=== PATIENT | male | born 1990 ===

== ENCOUNTER 2020-08-03 17:13 | Emergency (ER) | payer SELFPAY ==
[~2020-08-03] VITALS: Ht 185.4 cm; Wt 113.4 kg
[2020-08-03] MEDS ORDERED: ACETAMINOPHEN 500 MG TABLET ONE (18:29)
[2020-08-03] MEDS ORDERED: ACETAMINOPHEN 500 MG TABLET PO ONE (18:30)
[2020-08-03] MEDS ORDERED: SODIUM CHLORIDE FLUSH 10ML SYR IVF ONE (18:30)
[2020-08-03] MEDS ORDERED: KETOROLAC 30 MG/1 ML IVPush ONE (18:30)
[2020-08-03] MEDS ORDERED: SODIUM CHLORIDE 0.9% 1,000ML IVBOLUS ONE ×2 (18:30→20:00)
[2020-08-03 18:34] LABS: BASOPHILS % (AUTO) 1 % (0-1); EOSINOPHILS % (AUTO) 0 % (1-7); LYMPHOCYTES % (AUTO) 20 % (22-44); MEAN CORPUSCULAR HGB CONC 34.5 g/dL (33.2-36.2); MEAN PLATELET VOLUME 7.9 fL (7.4-10.4); MONOCYTES % (AUTO) 6 % (2-9); NEUTROPHILS % (AUTO) 73 % (42-75); PLATELET COUNT 296 x10^3/uL (130-400); RED BLOOD COUNT 4.99 x10^6/uL (4.38-5.82); RED CELL DISTRIBUTION WIDTH 12.6 % (9.4-14.8)
[2020-08-03 18:39] LABS: ANION GAP 5 mmol/L (5-15); CALCIUM 8.7 mg/dL (8.5-10.1); CHLORIDE 104 mmol/L (98-107); CREATININE 1.14 mg/dL (0.7-1.3)
--- NOTE | 2020-08-03 18:50 | NUR ---
THIS IS A 30 YR OLD MALE HERE FOR FLU LIKE SYMPTOMS X 1 WEEK AND SOB X 1 DAY. PT PLACED ON CARDIAC, NIBP, AND O2 MONITORING. IV ACCESS OBTAINED, LABS DRAWN FROM START, AND IV FLUIDS PER NOV. PT MEDICATED PER ORDER. CALL LIGHT IN REACH. PT ENCOURAGED TO CALL.
[2020-08-03 18:52] LABS: MD NO
[2020-08-03] MEDS ORDERED: KETOROLAC 30 MG/1 ML ONE (18:54)
--- NOTE | 2020-08-03 19:28 | NUR ---
PT AMBULATED PER DR YU. PT WAS ABLE TO AMBULATE THE LENGTH OF THE ER TWICE WITHOUT ANY O2 DESATURATION. DR YU MADE AWARE.
[2020-08-03 19:40] LABS: D-DIMER (DIC) 0.57 ug/mlFEU (0.00-0.52); PROTIME 11.8 Seconds (9.6-11.5)
[2020-08-03 19:42] LABS: C-REACTIVE PROTEIN, QUANT 3.73 mg/dL (0.02-0.49)
[2020-08-03 19:52] VITALS: BP 125/75
== END 2020-08-03 20:34 | disposition home or self-care (01) ==
LOC: ED 17:23
DX: U07.1 COVID-19 (principal); J06.9 Acute upper respiratory infection, unspecified
CPT/HCPCS: 36415; 71045; 80048; 82728; 83605; 83615; 84145; 85025; 85049; 85379; 85384; 85610; 85730; 86140; 87040; 87186; 87635; 96361; 96374; 99284; J1885; J7030

== ENCOUNTER 2020-08-05 00:57 | Emergency (ER) | payer SELFPAY ==
[~2020-08-05] VITALS: Ht 185.4 cm; Wt 118.0 kg
--- NOTE | 2020-08-05 02:16 | NUR ---
pt to room from lobby
--- NOTE | 2020-08-05 02:51 | NUR ---
cxr at bs.
[2020-08-05 03:06] LABS: ALBUMIN 3.2 g/dL (3.4-5.0); ANION GAP 6 mmol/L (5-15); CALCIUM 8.4 mg/dL (8.5-10.1); CHLORIDE 104 mmol/L (98-107); CREATININE 1.02 mg/dL (0.7-1.3)
[2020-08-05 03:09] LABS: BASOPHILS % (AUTO) 0 % (0-1); EOSINOPHILS % (AUTO) 0 % (1-7); LYMPHOCYTES % (AUTO) 12 % (22-44); MEAN CORPUSCULAR HEMOGLOBIN 29.3 pg (27.5-34.5); MEAN CORPUSCULAR HGB CONC 34.1 g/dL (33.2-36.2); MEAN PLATELET VOLUME 7.6 fL (7.4-10.4); MONOCYTES % (AUTO) 4 % (2-9); NEUTROPHILS % (AUTO) 83 % (42-75); PLATELET COUNT 310 x10^3/uL (130-400); RED CELL DISTRIBUTION WIDTH 12.5 % (9.4-14.8)
[2020-08-05 03:17] LABS: MD NO
--- NOTE | 2020-08-05 04:10 | NUR ---
vss. ambulatory. verbalized understanding of discharge instructions.
== END 2020-08-05 04:11 | disposition home or self-care (01) ==
LOC: ED 01:00
DX: J18.9 Pneumonia, unspecified organism (principal); R50.9 Fever, unspecified; R06.02 Shortness of breath; R07.89 Other chest pain; R78.81 Bacteremia
CPT/HCPCS: 36415; 71045; 80048; 82040; 84145; 85025; 99284

== ENCOUNTER 2020-08-06 09:45 | Emergency (ER) | payer SELFPAY ==
[~2020-08-06] VITALS: Ht 185.4 cm; Wt 116.6 kg
--- NOTE | 2020-08-06 09:53 | NUR ---
NO ANSWER X2
--- NOTE | 2020-08-06 10:16 | NUR ---
ER PROVIDER AT BEDSIDE FOR EVALUATION.
--- NOTE | 2020-08-06 10:19 | NUR ---
PATIENT WALKED BACK FROM TRIAGE WITH CHIEF C/O LOW OXYGEN LEVELS. PATIENT STATES HE IS COVID +, AND HAS BEEN MONITORING OXYGEN SATURATION AT HOME. TODAY O2 SATS WERE CONSISTENTLY BELOW 90% PER PATIENT. PATIENT DENIES CHEST PAIN. O2 SATURATION AT THIS TIME 90% RA. NO SIGNS OF ACUTE DISTRESS, CONNECTED TO VITALS MACHINE, CALL LIGHT WITHIN REACH.
[2020-08-06] MEDS ORDERED: SODIUM CHLORIDE FLUSH 10ML SYR IVF ONE (10:30)
--- NOTE | 2020-08-06 10:46 | NUR ---
22 GAUGE STARTED R-AC, BLOOD COLLECTED AND SENT TO LAB.
[2020-08-06 10:59] LABS: MEAN CORPUSCULAR HEMOGLOBIN 29.1 pg (27.5-34.5); MEAN CORPUSCULAR HGB CONC 34.1 g/dL (33.2-36.2); MEAN PLATELET VOLUME 7.6 fL (7.4-10.4); PLATELET COUNT 325 x10^3/uL (130-400); RED BLOOD COUNT 4.67 x10^6/uL (4.38-5.82); RED CELL DISTRIBUTION WIDTH 12.6 % (9.4-14.8)
[2020-08-06 11:08] LABS: ALANINE AMINOTRANSFERASE 96 U/L (12-78); ALBUMIN 2.9 g/dL (3.4-5.0); ANION GAP 9 mmol/L (5-15); CALCIUM 7.7 mg/dL (8.5-10.1); CHLORIDE 107 mmol/L (98-107); CREATININE 0.92 mg/dL (0.7-1.3)
[2020-08-06 11:14] LABS: MD YES
[2020-08-06 11:17] LABS: <PLATELET ESTIMATE> ADEQUATE; <PLT MORPHOLOGY> NORMAL PLT MORPH; <RBC MORPHOLOGY> NORMAL; BAND#(MANUAL) 0.13 x10^3/uL; BANDS%(MANUAL) 3 % (0-7); LYMPH#(MANUAL) 0.56 x10^3/uL (1-3.4); LYMPHS% (MANUAL) 13 % (22-44); MONOS#(MANUAL) 0.22 x10^3/uL (0.3-2.7); MONOS% (MANUAL) 5 % (2-9); REACTIVE LYMPHS # (MANUAL) 0.04 x10^3/uL (0-0); REACTIVE LYMPHS % (MANUAL) 1 % (0-0); SEG#(MANUAL) 3.35 x10^3/uL (1.8-6.8); SEGS% (MANUAL) 78 % (42-75)
[2020-08-06 11:22] LABS: ALKALINE PHOSPHATASE 73 U/L (45-117); BILIRUBIN,TOTAL 0.6 mg/dL (0.2-1.0); TOTAL PROTEIN 7.3 g/dL (6.4-8.2)
--- NOTE | 2020-08-06 11:35 | NUR ---
20G IV NEEDED FOR CTA
--- NOTE | 2020-08-06 11:46 | NUR ---
20 GAUGE IV STARTED L-AC, NO SIGNS OF ACUTE DISTRESS, CONNECTED TO HOME HEALTH OUTREACH COORDINATOR, CALL LIGHT WITHIN REACH.
--- NOTE | 2020-08-06 12:09 | NUR ---
CT NOTIFIED THAT 20 GAUGE IV PLACED.
--- NOTE | 2020-08-06 12:30 | NUR ---
PATIENT TO CT SCAN.
--- NOTE | 2020-08-06 12:56 | NUR ---
PATIENT BACK FROM CT, RESTING IN [facility] ON PHONE, NO SIGNS OF ACUTE DISTRESS, CONNECTED TO ZYGLO TECHNICIAN, CALL LIGHT WITHIN REACH, NO FURTHER NEEDS AT THIS TIME.
[2020-08-06] MEDS ORDERED: OMNIPAQUE 350 MG/ML, 150 ML BOTTLE ONE (13:03)
--- NOTE | 2020-08-06 13:37 | NUR ---
ER PROVIDER AT BEDSIDE TO DISCUSS POC.
--- NOTE | 2020-08-06 14:02 | NUR ---
PATIENT PROVIDED INCENTIVE SPIROMETER.
[2020-08-06 14:12] VITALS: BP 124/75
== END 2020-08-06 14:14 | disposition home or self-care (01) ==
LOC: ED 12:39
DX: U07.1 COVID-19 (principal); B34.9 Viral infection, unspecified; R06.02 Shortness of breath; R05 Cough; R06.00 Dyspnea, unspecified; R19.7 Diarrhea, unspecified; Z79.899 Other long term (current) drug therapy
CPT/HCPCS: 36415; 71045; 71275; 80053; 85025; 99285; Q9967